=== PATIENT | male | born 1940 | race Caucasian/White ===

== ENCOUNTER 2017-02-09 11:54 | Emergency (ER) | payer MEDICARE, BC ==
[2017-02-09 12:41] VITALS: BP 146/51
--- NOTE | 2017-02-09 13:14 | UC ---
Head Injury HPI - HPI Summary HPI Summary: per inletter "B/L knee and left elbow lacerations onset 2129 last night s/p fall; small abrasion on forehead. Right arm bruising and pain.Pt takes Xeralto for afib & leg edema" Incident occurred at 2099 last PM. he tripped going up his steps. he denies hitting his head with fall. No LOC. he tried to crawl into his house and hit his glasses that bent a little. denies ANN, no bruising or bleeding from head. they applied bandages, but no excessive bleeding or seeping at this time. he feels fine o/w. - History Of Current Complaint Chief Complaint: UCLaceration Stated Complaint: BILATERAL KNEE PAIN,LEFT ELBOW FROM FALL Time Seen by Provider: 02/09/17 13:02 - Allergies/Home Medications Allergies/Adverse Reactions: Allergies Allergy/AdvReac Type Severity Reaction Status Date / Time Levofloxacin [From Levaquin] Allergy Intermediate Hives Verified 02/09/17 12:41 Home Medications: Home Medications Iron Tab 325 mg PO DAILY 02/09/17 [History Confirmed 02/09/17] Multiple Vitamins W/ Minerals [Multivitamin Adults] 1 tab PO DAILY 02/09/17 [ History Confirmed 02/09/17] PMH/Surg Hx/FS Hx/Imm Hx Previously Healthy: Yes Endocrine History: Diabetes Cardiovascular History: Hypertension, Atrial Fibrillation - Surgical History Surgical History: Yes Surgery Procedure, Year, and Place: transverse colon removed--benign growth 2012. gallbladder removed. prolapsed rectum 1990--repair. 3 hernia repairs - Family History Known Family History: Positive: Diabetes - Social History Alcohol Use: Daily Alcohol Amount: 6 pack beer daily Substance Use Type: None Smoking Status (MU): Former Smoker When Did the Patient Quit Smoking/Using Tobacco: 1971 - Immunization History Most Recent Influenza Vaccination: 12/2013 Most Recent Tetanus Shot: within 10 years Review of Systems Constitutional: Negative Skin: Negative Eyes: Negative ENT: Negative Respiratory: Negative Cardiovascular: Negative Gastrointestinal: Negative Genitourinary: Negative Motor: Negative Neurovascular: Negative Musculoskeletal: Negative Neurological: Negative Psychological: Negative Is Patient Immunocompromised?: No All Other Systems Reviewed And Are Negative: Yes Physical Exam Triage Information Reviewed: Yes Appearance: Well-Appearing, No Pain Distress, Well-Nourished Vital Signs: Initial Vital Signs Temp 98.2 F 02/09/17 12:29 Pulse 20 02/09/17 12:29 Resp 20 02/09/17 12:29 BP 146/51 02/09/17 12:29 Vital Signs Reviewed: Yes Eye Exam: Normal, Other - PERRL, EOMI ENT Exam: Normal ENT: Positive: Pharynx normal Neck exam: Normal Neck: Positive: Supple, Nontender, No Lymphadenopathy Respiratory Exam: Normal Respiratory: Positive: Lungs clear, Normal breath sounds, No respiratory distress, No accessory muscle use Cardiovascular: Positive: No Murmur, Other: - irreg/irreg Abdomen Description: Positive: Nontender, Soft Musculoskeletal Exam: Normal Neurological Exam: Normal Neurological: Positive: Other: - CR III-XII intact. strength intact. no focal defects Psychological Exam: Normal Skin: Positive: Other - B/L knees with superficial lacerations w/o active bleeding. skin thin and pliable. FROM. left elbow w/ small abrasion. rt forehead w/ minimal superficial scrapes w/o any bleeding. right forarm has bruing up entire arm, but no skin abrasions or hematomas. Head Injury Course/Dx - Course Course Of Treatment: wounds irrigated and cleansed by RN. - Differential Dx/Diagnosis Differential Diagnosis/HQI/PQRI: Contusion, Hematoma, Laceration Provider Diagnoses: b.l knee abrasions, left elbow abrasion Discharge - Discharge Plan Condition: Stable Disposition: HOME Patient Education Materials: Abrasion (ED) Referrals: Chiquita Clement MD [Primary Care Provider] - 3 Days Additional Instructions: Watch for any worsening bruising or bleeding or swelling. Watch for headaches/ dizziness or falling, I I recommend CT of your head if these symptoms occur. Use antibiotic appt and keep covered. watch for signs of infections.
[2017-02-09] MEDS ORDERED: Bacitracin OINTMENT* 1 TUBE TOPICAL ONE (13:31)
== END 2017-02-09 14:05 | disposition home or self-care (01) ==
LOC: UCCORT 11:54
DX: S80.212A Abrasion, left knee, initial encounter (principal); S80.211A Abrasion, right knee, initial encounter; S50.312A Abrasion of left elbow, initial encounter; W10.2XXA Fall (on)(from) incline, initial encounter; Y93.9 Activity, unspecified; Y92.9 Unspecified place or not applicable; E11.9 Type 2 diabetes mellitus without complications; I48.91 Unspecified atrial fibrillation; Z79.01 Long term (current) use of anticoagulants; I10 Essential (primary) hypertension; Z88.1 Allergy status to other antibiotic agents; Z87.891 Personal history of nicotine dependence
CPT/HCPCS: 99213; G0463

== ENCOUNTER 2018-10-26 14:21 | Emergency (ER) | payer MEDICARE, BC, OTHER ==
[2018-10-26 14:31] VITALS: BP 125/68
[2018-10-26] MEDS ORDERED: Gelfoam 12-7 ADSORBABL SPONGE* 1 EA SPONGE TOPICAL ONE (14:39)
[2018-10-26] MEDS ORDERED: Silver Nitrate/Potassium Nitr* 1 EA STICK TOPICAL ONE (15:00)
--- NOTE | 2018-10-26 15:00 | UC ---
Skin Complaint HPI - HPI Summary HPI Summary: Patient presents to urgent care for evaluation of the wound bleeding under his right eye. Patient states he had a small pimple-like lesion there for 2-3 days. Patient states this morning in the shower when he rubbed it. Patient states his been oozing blood ever since. Patient has used a bandage that helps slow the bleeding down but it starts again when he takes it off. The patient is not lightheaded. Patient does takes xarelto. Patient denies any vision changes. No headache. No other complaints. Patient's medications reviewed this visit. - History of Current Complaint Chief Complaint: UCWounds Time Seen by Provider: 10/26/18 14:37 Stated Complaint: LAC BELOW EYE Hx Obtained From: Patient Current Severity: None Pain Intensity: 0 Pain Scale Used: 0-10 Numeric - Allergy/Home Medications Allergies/Adverse Reactions: Allergies Allergy/AdvReac Type Severity Reaction Status Date / Time latex Allergy Intermediate Hives Verified 10/26/18 14:31 levofloxacin [From Levaquin] Allergy Intermediate Hives Verified 10/26/18 14:31 Home Medications: Home Medications Cyanocobalamin (Vitamin B-12) [ Vitamin B12 Ultra Stre] 5,000 mcg PO DAILY WITH MEAL 10/26/18 [History Confirmed 10/26/18] PMH/Surg Hx/FS Hx/Imm Hx Previously Healthy: No Cardiovascular History: Hypertension, Atrial Fibrillation Other History Of: Anticoagulant Therapy - Surgical History Surgical History: Yes Surgery Procedure, Year, and Place: transverse colon removed--benign growth 2012. gallbladder removed. prolapsed rectum 1990--repair. 3 hernia repairs - Family History Known Family History: Positive: Diabetes, Non-Contributory - Social History Lives: With Family Alcohol Amount: 6 pack beer daily Substance Use Type: None Smoking Status (MU): Former Smoker When Did the Patient Quit Smoking/Using Tobacco: 1971 - Immunization History Most Recent Influenza Vaccination: 12/2013 Most Recent Tetanus Shot: within 10 years Review of Systems All Other Systems Reviewed And Are Negative: Yes Constitutional: Positive: Negative Skin: Positive: Negative, Other - bleeding scabbed wound under right eye Is Patient Immunocompromised?: No Physical Exam - Summary Physical Exam Summary: Vital Signs Reviewed: Yes A+Ox3, no distress Eyes: Conjunctiva Clear ENT: Hearing grossly normal neck: supple Respiratory: Positive: No respiratory distress, No accessory muscle use Cardiovascular: skin color reflect adequate perfusion Musculoskeletal Exam: LEVY x 4 without difficulty Neurological: Positive: Alert, ambulatory without difficulty Psychological: Positive: Normal Response To examiner Skin: Positive: no rash, no ecchymosis right cheek - just superior to zygomatic arch pt with small skin defect with peculating, persistent ooze. None tender Triage Information Reviewed: Yes Vital Signs: Initial Vital Signs Temp 97.3 F 10/26/18 14:26 Pulse 72 10/26/18 14:26 Resp 18 10/26/18 14:26 BP 125/68 10/26/18 14:26 Pulse Ox 99 10/26/18 14:26 Course/Dx - Course Course Of Treatment: Patient presents to urgent care with a persistent percolating wound to his right cheek. Patient apply pressure to continue to do so he came here. Upon initial evaluation you surgery spawns jelly applied. Cover with bandage and left patient to be. Tenderness patient had blood through this. At this time, patient placed in sling position. Instills 2 drops of lidocaine with epi over wound, dad to dryness and then used silver nitrate stick. It continued to ooze at this time. Place another T-cell Gelfoam help pressure for approximately 5 minutes. Left patient to be. Patient monitored for approximately 30 minutes. No recurrent bleeding. Suspect location is a highly mobile area of the face with expression and cause rebleeding. Patient did not relay where he was hurting her. Cover with bandage. Patient instructed to leave in place for 24 hours. Strict return precautions discussed. Patient comfortable in agreement with plan. Patient never felt lightheaded or dizzy. Patient's vital signs are stable. Patient interacting drinking water and in no distress throughout visit. - Diagnoses Provider Diagnosis: Wound of cheek Discharge - Sign-Out/Discharge Documenting (check all that apply): Patient Departure All imaging exams completed and their final reports reviewed: No Studies - Discharge Plan Condition: Stable Disposition: HOME Patient Education Materials: Acute Wound Care (ED) Referrals: Chiquita Clement MD [Primary Care Provider] - Additional Instructions: - Keep bandage on your wound without touching or getting it wet for a minimum of 24 hours - Okay to get wet to help remove after 24 hours. If the white bandage is stuck to your skin under then bandage - leave it in place for another 24 hours. Wet this white bandage to help remove it from the skin - contact your primary doctor or go to the emergency department with any questions or concern - Billing Disposition and Condition Condition: STABLE Disposition: Home
[2018-10-26] MEDS ORDERED: Lidocaine 1% w EPI 1:100,000* 30 ML VIAL INJ ONE ×2 (15:02→15:04)
[2018-10-26] MEDS ORDERED: Lidocaine 2% w EPI 1:100,000* 20 ML VIAL INJ ONE (15:06)
== END 2018-10-26 16:10 | disposition home or self-care (01) ==
LOC: UCEAST 14:21
DX: S00.80XA Unspecified superficial injury of other part of head, initial encounter (principal); X58.XXXA Exposure to other specified factors, initial encounter; Y92.9 Unspecified place or not applicable; I10 Essential (primary) hypertension; I48.91 Unspecified atrial fibrillation; Z79.01 Long term (current) use of anticoagulants; Z87.891 Personal history of nicotine dependence; Z91.040 Latex allergy status
CPT/HCPCS: 12011; 99211; A9270-GY; G0463

== ENCOUNTER 2019-01-18 13:10 | Emergency (ER) | payer MEDICARE, BC ==
[2019-01-18 13:22] VITALS: BP 126/54
--- NOTE | 2019-01-18 13:46 | UC ---
Cardiac HPI - HPI Summary HPI Summary: This patient is a 78-year-old male who presents to the urgent care with a chief complaint of skin abrasion in the left forearm as well as pain in the left rib cage area. He reports that last night he tripped and fell when he sustained the abrasion and the pain in the left rib cage. The pain increases with deep inspirations of movements. She is because of rectal for atrial fibrillation. He denies any headache contusion, denies any head trauma, denies neck pain. He denies any loss of consciousness. - History of Current Complaint Chief Complaint: UCLaceration Stated Complaint: ARM LACERATION, AND RIB INJURY Time Seen by Provider: 01/18/19 13:30 Hx Obtained From: Patient Onset/Duration: Sudden Onset Initial Severity: Mild Current Severity: Moderate Pain Intensity: 6 - Allergy/Home Medications Allergies/Adverse Reactions: Allergies Allergy/AdvReac Type Severity Reaction Status Date / Time latex Allergy Intermediate Hives Verified 01/18/19 13:22 levofloxacin [From Levaquin] Allergy Intermediate Hives Verified 01/18/19 13:22 Home Medications: Home Medications Acetaminophen [Pain Relief] 1,000 mg PO ONCE PRN 01/18/19 [History Confirmed ] Tamsulosin CAP* [Flomax CAP*] 1 tab PO DAILY 01/18/19 [History Confirmed ] PMH/Surg Hx/FS Hx/Imm Hx Previously Healthy: Yes Cardiovascular History: Hypertension, Atrial Fibrillation Other History Of: Anticoagulant Therapy - Surgical History Surgical History: Yes Surgery Procedure, Year, and Place: transverse colon removed--benign growth 2012. gallbladder removed. prolapsed rectum 1990--repair. 3 hernia repairs. ankle repair - Family History Known Family History: Positive: Diabetes, Non-Contributory - Social History Alcohol Use: Daily Alcohol Amount: 3-4 beer daily Substance Use Type: None Smoking Status (MU): Former Smoker When Did the Patient Quit Smoking/Using Tobacco: 1971 - Immunization History Most Recent Influenza Vaccination: 12/2013 Most Recent Tetanus Shot: within 10 years Review of Systems All Other Systems Reviewed And Are Negative: Yes Constitutional: Positive: Negative Skin: Positive: Other - Skin abrasion in the left forearm Eyes: Positive: Negative ENT: Positive: Negative Respiratory: Positive: Negative Cardiovascular: Positive: Negative Gastrointestinal: Positive: Negative Genitourinary: Positive: Negative Motor: Positive: Negative Neurovascular: Positive: Negative Musculoskeletal: Positive: Negative Neurological: Positive: Negative Psychological: Positive: Negative Is Patient Immunocompromised?: No Physical Exam - Summary Physical Exam Summary: VITAL SIGNS: Reviewed. GENERAL: Patient is a well developed and nourished male who is sitting comfortable in the stretcher. Patient is not in any acute respiratory distress. HEAD AND FACE: No signs of trauma. No ecchymosis and hematomas in the. No skull depressions. EYES: PERRLA, EOMI x 2, No injected conjunctiva, no nystagmus. No photophobia. No raccoon eyes. EARS: Hearing grossly intact. Ear canals and tympanic membranes are within normal limits. No discharge or secretions were observed. No hemotympanum. No riley sign. GCS: 15 MOUTH: Oropharynx within normal limits. NECK: Supple, trachea is midline, no adenopathy, no JVD, no carotid bruit, no c- spine tenderness, neck with full ROM. No meningeal signs, no Kernig's or brudzinskis signs. CHEST: Symmetric, no tenderness at palpation LUNGS: CTA B/L. CVS: IRR, S1 and S2 present, no murmurs appreciated ABDOMEN: Soft, NT, normal BS EXTREMITIES: FROM in all major joints, no edema, no cyanosis or clubbing. NEURO: Alert and oriented x 3. No acute neurological deficits. Speech is normal and follows commands. SKIN: Dry and warm, skin abrasion in the left forearm. No bleeding, no signs of infection. Triage Information Reviewed: Yes Appearance: Well-Appearing Vital Signs: Initial Vital Signs Temp 97.9 F 01/18/19 13:17 Pulse 69 01/18/19 13:17 Resp 18 01/18/19 13:17 BP 126/54 01/18/19 13:17 Pulse Ox 96 01/18/19 13:17 Vital Signs Reviewed: Yes - Assessment/Plan Course Of Treatment: Patient is on today and the tetanus vaccine. This skin abrasion by a rapid and he seems to be clean dry and intact. His no signs of infection. Therefore, I placed a nonadhesive gauze. Who reviewed x-ray impression: No fracture or dislocation. There is concern for osseous pathology. Discussed with patient and need to f/u with PCP. He understands and agrees. The patient was recommended to take Tylenol for the pain. He declined any narcotics. Therefore the patient was discharged home with follow-up with PCP. Patient was instructed to return to the urgent care or go to the emergency department if he develops any other symptom. - Clinical Impression Provider Diagnosis: Rib contusion, Skin abrasion Discharge ED - Sign-Out/Discharge Documenting (check all that apply): Patient Departure All imaging exams completed and their final reports reviewed: No Studies - Discharge Plan Condition: Stable Disposition: HOME Patient Education Materials: Skin Tear (ED), Rib Contusion (ED) Referrals: Chiquita Clement MD [Primary Care Provider] - Additional Instructions: Take medications as instructed Increase your fluid intake F/U with PCP in the next 2-3 days Return to the if symptoms worsen - Billing Disposition and Condition Condition: STABLE Disposition: Home
== END 2019-01-18 14:35 | disposition home or self-care (01) ==
LOC: UCEAST 13:10
DX: S50.812A Abrasion of left forearm, initial encounter (principal); S20.212A Contusion of left front wall of thorax, initial encounter; I10 Essential (primary) hypertension; Z91.040 Latex allergy status; Z88.1 Allergy status to other antibiotic agents; Z87.891 Personal history of nicotine dependence; W01.0XXA Fall on same level from slipping, tripping and stumbling without subsequent striking against object, initial encounter; Y92.9 Unspecified place or not applicable
CPT/HCPCS: 99211; G0463

== ENCOUNTER 2019-01-21 12:19 | Emergency (ER) | payer MEDICARE, BC ==
[2019-01-21 12:31] VITALS: BP 115/62
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
== END 2019-01-21 14:07 | disposition home or self-care (01) ==
LOC: UCCORT 12:19
DX: S01.01XA Laceration without foreign body of scalp, initial encounter (principal); I48.91 Unspecified atrial fibrillation; Z79.01 Long term (current) use of anticoagulants; Z91.040 Latex allergy status; Z88.1 Allergy status to other antibiotic agents; Z87.891 Personal history of nicotine dependence; W22.8XXA Striking against or struck by other objects, initial encounter; Y92.9 Unspecified place or not applicable
CPT/HCPCS: 70450; 99212; G0463